=== PATIENT | female | born 1990 | race African-American/Black ===

== ENCOUNTER 2017-09-10 00:19 | Emergency (ER) | payer MEDICAID ==
[~2017-09-10] VITALS: Ht 152.4 cm; Wt 54.4 kg
[2017-09-10 00:41] VITALS: BP 136/82
[2017-09-10] MEDS ORDERED: IBUPROFEN 600 MG TAB PO ONE (02:45)
[2017-09-10] MEDS ORDERED: CYCLOBENZAPRINE HCL 10 MG TAB PO ONE (02:45)
== END 2017-09-10 03:15 | disposition home or self-care (01) ==
LOC: EDBD 00:19 → ER 00:25
DX: S16.1XXA Strain of muscle, fascia and tendon at neck level, initial encounter (principal); S39.012A Strain of muscle, fascia and tendon of lower back, initial encounter; R51 Headache; V49.49XA Driver injured in collision with other motor vehicles in traffic accident, initial encounter; Y93.89 Activity, other specified; Y99.8 Other external cause status; Y92.410 Unspecified street and highway as the place of occurrence of the external cause
CPT/HCPCS: 70450; 72040; 72070; 81025